=== PATIENT | male | born 1985 | race Caucasian/White ===

== ENCOUNTER 2022-01-16 08:55 | Outpatient (CLI) | payer OTHER, SELFPAY ==
[2022-01-16 22:09] LABS: Iron* 35 ug/dL (49-181)
[2022-01-16 22:42] LABS: Ferritin* 4.5 ng/mL (17.9-464.0)
== END 2022-01-16 08:56 | disposition home or self-care (01) ==
PROVIDERS: PCP Family Medicine; Visit Provider Family Medicine
DX: D64.9 Anemia, unspecified (principal)
CPT/HCPCS: 82728; 83540

== ENCOUNTER 2022-04-18 12:30 | Outpatient (CLI) | payer OTHER, SELFPAY | END 2022-04-18 12:31 | disposition home or self-care (01) | LOC: OP CLINIC 12:30 | PROVIDERS: PCP Family Medicine; Visit Provider Internal Medicine | DX: D50.9 Iron deficiency anemia, unspecified (principal); K44.9 Diaphragmatic hernia without obstruction or gangrene | CPT/HCPCS: 43239; 88305; 88342; J2250; J3010 ==

== ENCOUNTER 2022-05-13 14:37 | Outpatient (CLI) | payer OTHER, SELFPAY ==
[2022-05-16 00:07] LABS: Immunoglobulin A 231 mg/dL (68-408)
[2022-05-16 09:00] LABS: Tissue Transglutaminase IgA >100 U/mL (0-3)
== END 2022-05-13 14:38 | disposition home or self-care (01) ==
LOC: LONREF 14:38
PROVIDERS: PCP Family Medicine; Visit Provider Family Medicine
DX: D50.9 Iron deficiency anemia, unspecified (principal)
CPT/HCPCS: 82784; 86364

== ENCOUNTER 2022-08-15 10:18 | Outpatient (CLI) | payer OTHER, SELFPAY | END 2022-08-15 10:19 | disposition home or self-care (01) | LOC: LONREF 10:19 | PROVIDERS: PCP Family Medicine; Visit Provider Family Medicine | DX: D50.9 Iron deficiency anemia, unspecified (principal) | CPT/HCPCS: 82728 ==

== ENCOUNTER 2024-02-24 08:24 | Outpatient (CLI) | payer OTHER, SELFPAY ==
--- OUTSIDE RECORDS SUMMARY | 2024-02-24 08:26 | XMS_ITS | Encounter Summary ---
Author Organization [facility] Address [address] [place] [id number] Phone [email or web address] Care Team Providers Care Control Manager Name Role Phone Unavailable Primary Care Provider Unavailabl e Encounter Details Date Type Department Care Team (Late st Contact Info) Description 01/13/2024 Claims Summary [facility] [address] [place] [address] Provider, Claims Summary External, [address] [place] [id number] Social History Tobacco Use Types Packs/Day Years Used Date Smoking Tobacco: Never Assessed Sex and Gender Information Value Date Recorded Sex Assigned at Not on file Gender Identity Not on file Sexual Orientation Not on file documented as of this encounter Plan of Treatment Not on file documented as of this encounter Visit Diagnoses Not on filedocumented in this encounter
--- OUTSIDE RECORDS SUMMARY | 2024-02-24 08:26 | XMS_ITS | Clinical Summary ---
Author Organization [facility] Address [address] [place] [phone] Phone [email or web address] Care Team Providers Care Driveway Attendant Name Role Phone Unavailable Primary Care Provider Unavailabl e Encounters Date Type Department Care Team Description 01/13/2024 Claims Summary [facility] [address] [place] [address] Provider, Claims Summary MD Viji from Last 3 Months Social History Tobacco Use Types Packs/Day Years Used Date Smoking Tobacco: Never Assessed Sex and Gender Information Value Date Recorded Sex Assigned at Not on file Gender Identity Not on file Sexual Orientation Not on file Plan of Treatment Not on file
== END 2024-02-24 08:25 | disposition home or self-care (01) ==
PROVIDERS: PCP Family Medicine; Visit Provider Family Medicine
DX: D50.9 Iron deficiency anemia, unspecified (principal); E78.5 Hyperlipidemia, unspecified
CPT/HCPCS: 80061; 82728

== ENCOUNTER 2025-04-28 08:17 | Outpatient (CLI) | payer OTHER, SELFPAY | END 2025-04-28 08:18 | disposition home or self-care (01) | LOC: LKVREF 08:20 | PROVIDERS: PCP Family Medicine; Visit Provider Family Medicine | DX: E78.5 Hyperlipidemia, unspecified (principal) | CPT/HCPCS: 80061 ==